=== PATIENT | male | born 1990 | race African-American/Black ===

== ENCOUNTER 2022-01-02 08:44 | Emergency (ER) | payer SELFPAY ==
[~2022-01-02] VITALS: Ht 177.8 cm; Wt 75.0 kg
[2022-01-02 09:19] VITALS: BP 97/53; TEMP 97.9
[2022-01-02] MEDS ORDERED: MOTRIN 800800 MG/TAB PO (11:01)
[2022-01-02] MEDS ORDERED: FLEXERIL 1010 MG/TAB PO (11:01)
[2022-01-02] MEDS ORDERED: NORCO 325 MG-51 TAB PO (11:01)
[2022-01-02 11:15] VITALS: PULSE 55
== END 2022-01-02 11:15 | disposition home or self-care (01) ==
LOC: COL.ER 08:44
DX: M54.50 Low back pain, unspecified (principal); F17.210 Nicotine dependence, cigarettes, uncomplicated; Z28.310 Unvaccinated for COVID-19; W19.XXXA Unspecified fall, initial encounter